=== PATIENT | male | born 2005 | race African-American/Black ===

== ENCOUNTER 2025-06-12 14:07 | Emergency (ER) | payer OTHER ==
[~2025-06-12] VITALS: Ht 177.8 cm; Wt 77.7 kg
[2025-06-12 14:13] VITALS: TEMP 98.1
[2025-06-12] MEDS ORDERED: IBUP-1554 PO (16:34)
[2025-06-12] MEDS ORDERED: ACET-66 PO (16:34)
[2025-06-12 16:48] VITALS: BP 130/75; PULSE 60; RESP 18; O2SAT 100
[2025-06-12] MEDS: IBUPROFEN 600 MG TABLET PO ONE (16:49)
== END 2025-06-12 16:52 | disposition home or self-care (01) ==
LOC: EMS 14:07
DX: S63.501A Unspecified sprain of right wrist, initial encounter (principal); X50.1XXA Overexertion from prolonged static or awkward postures, initial encounter; Y93.89 Activity, other specified; Y92.89 Other specified places as the place of occurrence of the external cause; Y99.8 Other external cause status
CPT/HCPCS: 99283

== ENCOUNTER 2025-09-12 12:02 | Emergency (ER) | payer OTHER ==
[~2025-09-12] VITALS: Ht 177.8 cm; Wt 77.3 kg
[~2025-09-12 12:02] MED LIST: ACET-66 PO; IBUP-1554 PO
[2025-09-12 12:09] VITALS: TEMP 98.6
[2025-09-12 15:34] VITALS: BP 125/70; PULSE 64; RESP 14; O2SAT 100
== END 2025-09-12 15:35 | disposition home or self-care (01) ==
LOC: EMS 12:02
DX: H54.61 Unqualified visual loss, right eye, normal vision left eye (principal); Z79.899 Other long term (current) drug therapy; W50.0XXA Accidental hit or strike by another person, initial encounter; Y93.66 Activity, soccer; Y92.322 Soccer field as the place of occurrence of the external cause; Y99.8 Other external cause status
CPT/HCPCS: 99282; Z7502